=== PATIENT | female | born 1960 | race Caucasian/White ===

== ENCOUNTER 2017-12-08 12:50 | Observation (INO) ==
[2017-12-08] MEDS ORDERED: Aspirin 325 MG Tablet PO ONE (13:30)
--- NOTE | 2017-12-08 13:37 | ED ---
HPI General Chief complaint: Dizziness Stated complaint: SOB/ Dizziness Time Seen by Provider: 12/08/17 13:09 Source: patient and family Mode of arrival: ambulatory Limitations: no limitations History of Present Illness HPI narrative: Patient is a 57-year-old female that presents for the evaluation of dizziness. The patient reports that over the past two weeks she has also been experiencing worsening fatigue, shortness of breath, and in general she states that she just feel as if she, "is in a fog." The patient states that when she feels dizzy she loses her balance and feels light headed. The patient states that the shortness of breath is occurring at rest as well as upon exertion. The patient also reports that she feels a tightness in her chest that also started two weeks ago with the other symptoms. The patient was seen today by her family provider who recommended she come in for an evaluation. Upon review of symptoms the patient reports generalized fatigue, palpitations, nausea , and vomiting. The patient denies feeling nauseous or any history of vomiting today. The patient also reports a chronic history of GERD which has recently become worse. The patient states that the burning sensation can become so intense at night that it will wake her up from her sleep. The patient does not report that anything specific that worsens the pain and she takes Tums to help alleviate the pain. Pain is 5/10. Related Data Home Medications Medication Instructions Recorded Confirmed citalopram 10 mg PO DAILY 12/08/17 12/08/17 dextroamphetamine-amphetamine 20 mg PO DAILY 12/08/17 12/08/17 [Adderall] Allergies Allergy/AdvReac Type Severity Reaction Status Date / Time amoxicillin Allergy Severe Hives Unverified 11/02/16 16:06 cephalexin Allergy Severe Hives Unverified 11/02/16 16:06 penicillin G Allergy Severe Hives Unverified 11/02/16 16:06 Review of Systems ROS: all other systems reviewed are negative [facility] Social History Social History Substance History: No History of Abuse Smoking Status: Current every day smoker Tobacco Type: Cigarettes How Often Do You Have a Drink Containing Alcohol: Never Recent Travel in [facility] within the Last 8 Weeks: No Recent Out of Country Travel within the Last 8 Weeks: No Immunization History Tetanus Immunization: Unsure Hx Influenza Vaccine This Season: No Exam Narrative Exam Narrative: GENERAL: Well appering. SKIN: Focused skin assessment warm/dry. HEAD: Atraumatic. Normocephalic. EYES: Pupils equal and round. No scleral icterus. No injection or drainage. ENT: No nasal bleeding or discharge. Mucous membranes pink and moist. NECK: Trachea midline. No JVD. CARDIOVASCULAR: Regular rate and rhythm. No murmur appreciated. RESPIRATORY: No accessory muscle use. Clear to auscultation. Breath sounds equal bilaterally. GASTROINTESTINAL: Abdomen soft, non-tender, nondistended. Hepatic and splenic margins not palpable. MUSCULOSKELETAL: No obvious deformities. No clubbing. No cyanosis. No edema. NEUROLOGICAL: Awake and alert. No obvious cranial nerve deficits. Motor grossly within normal limits. Normal speech. PSYCHIATRIC: Appropriate mood and affect; insight and judgment normal. Course Initial Documented Vital Signs Temperature 98.9 F 12/08/17 12:57 Pulse Rate 93 H 12/08/17 12:57 Respiratory Rate 12 12/08/17 12:57 Blood Pressure 123/77 12/08/17 12:57 Pulse Oximetry 95 12/08/17 12:57 Last Documented Vital Signs Temperature 98.9 F 12/08/17 12:57 Pulse Rate 93 H 12/08/17 12:57 Respiratory Rate 12 12/08/17 12:57 Blood Pressure 123/77 12/08/17 12:57 Pulse Oximetry 95 12/08/17 12:57 Medical Decision Making [facility] Narrative Medical decision making narrative: 57-year-old female the presents to the ED for evaluation of shortness of breath with exertion and chest discomfort. Patient was properly examined and was found to have signs and symptoms concerning for ACS. Patient was sent here for workup for ACS. She is a smoker. She reports she does have risk factors including age. Per patient she has no family history of heart disease. She does have a history of high blood pressure. Labs and imaging were done. Initial EKG on blood work did not show any sign of acute ischemia or arrhythmia. D-dimer was negative and the sign of PE. Physical exam is reassuring with no obvious sign of wheezing no real diagnosis for the patient. She does state that her heartburn has been worsening. This is concerning for possible angina equivalent. Recommendation at this time is for admission to chest pain center. Patient agrees with plan. Patient was admitted to chest pain center by me. My attending Dr Reza was made aware of findings and agrees with admission. Medical Screen Exam Complete: Yes Emergency Medical Condition: Yes Differential Diagnosis Differential Diagnosis: ACS versus angina versus PE versus electron abnormality versus hypotension Medical Records Medical records reviewed: Yes I reviewed the patient's medical records. Lab Data Lab results reviewed: Yes I reviewed the patient's lab results. Lab results narrative: CKMB and troponin negative Result diagrams: 12/08/17 13:40 12/08/17 13:40 Lab Results 12/08/17 12/08/17 12/08/17 Range/Units 13:40 13:40 13:40 WBC 5.8 (4.0-11.0) th/mm3 RBC 4.01 (4.00-5.30) mil/mm3 Hgb 12.5 (11.6-15.3) gm/dL Hct 36.8 (35.0-46.0) % MCV 91.8 (80.0-100.0) fL MCH 31.1 (27.0-34.0) pg MCHC 33.9 (32.0-36.0) % RDW 14.8 (11.6-17.2) % Plt Count 180 (150-450) th/mm3 MPV 9.6 (7.0-11.0) fL Neut % (Auto) 52.4 (16.0-70.0) % Lymph % (Auto) 37.8 (9.0-44.0) % [place] % (Auto) 7.6 (0.0-8.0) % Eos % (Auto) 1.8 (0.0-4.0) % Baso % (Auto) 0.4 (0.0-2.0) % Neut # (Auto) 3.1 (1.8-7.7) th/mm3 Lymph # (Auto) 2.2 (1.0-4.8) th/mm3 [place] # (Auto) 0.4 (0.0-0.9) th/mm3 Eos # (Auto) 0.1 (0.0-0.4) th/mm3 Baso # (Auto) 0.0 (0.0-0.2) th/mm3 WBC Differential . Differential Comment Auto diff final D-Dimer Quant (PE/DVT) 0.47 (0.00-0.50) mg/L FEU Sodium 139 (136-145) meq/L Potassium 3.6 (3.5-5.1) meq/L Chloride 104 (98-107) meq/L Carbon Dioxide 26.7 (21.0-32.0) meq/L Anion Gap 8 (5-15) meq/L BUN 12 (7-18) mg/dL Creatinine 0.84 (0.50-1.00) mg/dL Estimated GFR 70 L (>89) mL/min Random Glucose 107 H (74-106) mg/dL Calcium 8.6 (8.5-10.1) mg/dL Total Bilirubin 0.3 (0.2-1.0) mg/dL AST 41 H (15-37) U/L ALT 65 H (10-53) U/L Alkaline Phosphatase 101 (45-117) U/L Troponin I Less than 0.02 L (0.02-0.05) ng/mL Total Protein 8.3 H (6.4-8.2) g/dL Albumin 3.7 (3.4-5.0) g/dL Lipase 87 (73-393) U/L Imaging Data Attestation: I personally reviewed and interpreted this imaging study as follows : Radiologist's impression: Chest X-Ray 12/08/17 13:30 CONCLUSION: Negative examination. ECG Data Attestation: I personally reviewed and interpreted this ECG as follows: Interpretation: EKG show sinus rhythm with no sign of acute ischemia or arrhythmia. Ventricular rate of 80, SC interval of 147 ms. Discharge Plan Discharge Disposition Patient Disposition: 30 Still Patient Discharge Details Diagnosis: Chest pain Physicians Team ED Provider: Juanito Reza ED Midlevel Provider: Yordan Davis Primary Care Provider: UNKNOWN, Rxs /Orders / Referrals /Forms Prescriptions: No Action citalopram 10 mg Tablet 10 mg PO DAILY RF: 0 dextroamphetamine-amphetamine [Adderall] 10 mg Tablet 20 mg PO DAILY RF: 0 Discharge Interventions Interventions: Vital Signs Last Done: 12/08/17 12:57 Status ED Status: With Doctor
[2017-12-08 13:55] LABS: Baso % (Auto) 0.4 % (0.0-2.0); Eos # (Auto) 0.1 th/mm3 (0.0-0.4); Eos % (Auto) 1.8 % (0.0-4.0); Hematocrit 36.8 % (35.0-46.0); Hemoglobin 12.5 gm/dL (11.6-15.3); Lymph # (Auto) 2.2 th/mm3 (1.0-4.8); Lymph % (Auto) 37.8 % (9.0-44.0); Mean Corpuscular HGB Conc 33.9 % (32.0-36.0); Mean Corpuscular Hemoglobin 31.1 pg (27.0-34.0); Mean Corpuscular Volume 91.8 fL (80.0-100.0); Mean Platelet Volume 9.6 fL (7.0-11.0); Mono # (Auto) 0.4 th/mm3 (0.0-0.9); Mono % (Auto) 7.6 % (0.0-8.0); Neut # (Auto) 3.1 th/mm3 (1.8-7.7); Neut % (Auto) 52.4 % (16.0-70.0); Platelet Count 180 th/mm3 (150-450); Red Blood Count 4.01 mil/mm3 (4.00-5.30); Red Cell Distribution Width 14.8 % (11.6-17.2); White Blood Count 5.8 th/mm3 (4.0-11.0)
--- NOTE | 2017-12-08 14:05 | XR ---
EXAM DATE: 12/08/2017 2:01 PM EDT AGE/SEX: 57 years / Female INDICATIONS: Chest pain. CLINICAL DATA: This is the patient's initial encounter. Patient reports that signs and symptoms have been present for 1 day and indicates a pain score of 0/10. MEDICAL/SURGICAL HISTORY: None. None. COMPARISON: No prior exams available for comparison. FINDINGS: A single AP view of the chest demonstrates the lungs to be symmetrically aerated without evidence of mass, infiltrate or effusion. The cardiomediastinal contours are unremarkable. Osseous structures a re intact. CONCLUSION: Negative examination. Electronically signed by: Jean-Pierre Rodriguez MD 12/08/2017 2:04 PM EDT
[2017-12-08 14:10] LABS: Alanine Aminotransferase 65 U/L (10-53); Albumin 3.7 g/dL (3.4-5.0); Anion Gap 8 meq/L (5-15); Aspartate Aminotransferase 41 U/L (15-37); Blood Urea Nitrogen 12 mg/dL (7-18); Calcium 8.6 mg/dL (8.5-10.1); Carbon Dioxide 26.7 meq/L (21.0-32.0); Chloride 104 meq/L (98-107); Glomerular Filtration Rate 70 mL/min (>89); Glucose,Random 107 mg/dL (74-106); Lipase 87 U/L (73-393); Potassium 3.6 meq/L (3.5-5.1); Sodium 139 meq/L (136-145)
[2017-12-08 14:14] LABS: Alkaline Phosphatase 101 U/L (45-117); Total Protein 8.3 g/dL (6.4-8.2)
[2017-12-08] MEDS ORDERED: Famotidine PF Inj 20 MG/2 ML Vial IV.PUSH ONE (15:01)
--- NOTE | 2017-12-08 16:53 | P.HPCA ---
History of Present Illness Primary Care Physician: UNKNOWN Chief Complaint: Chest pain History of Present Illness: This is a 57-year-old female the presents to ED via private vehicle with complaint of feeling fatigued, increased acid reflux, hard time focusing, and then also complains of a central chest pressure has been intermittent for 2 weeks. She felt dizzy at times. She found nothing in particular bring on the chest pressures. States it does not last long when it occurs. Found nothing to improve or worsen when it is present. Cannot recall recent cardiac testing. Denies hypertension, hyperlipidemia, diabetes, and known CAD. Patient smokes three-quarter 1 pack a series daily. Denies family history of CAD. - Diagnosis (1) Chest pain (2) Tobacco abuse Review of Systems General: Patient denies fevers, chills, and recent travel. HEENT: Patient denies headache, sore throat, difficulty swallowing. Cardiovascular: Has the chest discomfort as mentioned above. Denies sensation of heart beating rapidly or irregularly. No syncope. Denies diaphoresis. Respiratory: Denies shortness of breath or inspirational chest discomfort. Denies coughing wheezing or hemoptysis. GI: Patient denies nausea, vomiting, diarrhea, abdominal pain, bloody stools. Musculoskeletal: Patient denies joint pain or edema. Denies calf pain or edema. Neurovascular: Patient denies numbness, tingling, weakness in extremities. Denies headache. Endocrine: Denies polyuria and polydipsia. Hematologic: Denies easy bruising. Skin: Denies rash or itching. PMFSH - History History Provided By: Patient - Tobacco History Tobacco Use In Past 30 Days: Yes Smoking Status: Current every day smoker Tobacco Type: Cigarettes - Alcohol History How Often Do You Have a Drink Containing Alcohol: Never - Substance Use History Substance History: No History of Abuse - Travel History Recent Travel in the [place] Within the Last 8 Weeks: No Recent Travel Out of the Country Within the Last 8 Weeks: No - Immunization History Tetanus Immunization: Unsure Hx Influenza Vaccine This Season: No Medications and Allergies Allergies Allergy/AdvReac Type Severity Reaction Status Date / Time amoxicillin Allergy Severe Hives Unverified 11/02/16 16:06 cephalexin Allergy Severe Hives Unverified 11/02/16 16:06 penicillin G Allergy Severe Hives Unverified 11/02/16 16:06 Home Medications Medication Instructions Recorded Confirmed Type citalopram 10 mg PO DAILY 12/08/17 12/08/17 History dextroamphetamine-amphetamine 20 mg PO DAILY 12/08/17 12/08/17 History [Adderall] Exam Vital signs: Vital Signs 12/08/17 12:57 Temperature 98.9 F Pulse Rate 93 H Respiratory Rate 12 Blood Pressure 123/77 Pulse Oximetry 95 Intake & Output 12/07/17 12/08/17 12/08/17 18:59 06:59 18:59 Weight 95.254 kg Narrative: GENERAL: This is a well-nourished, well-developed patient, in no apparent distress. Patient speaks in clear complete sentences. Patient is pleasant. HEENT: Head is atraumatic and normocephalic. Neck is supple without lymphadenopathy and trachea is midline. No JVD or carotid bruits. CARDIOVASCULAR: Regular rate and rhythm without murmurs, gallops, or rubs. RESPIRATORY: Clear to auscultation. Breath sounds equal bilaterally. No wheezes , rales, or rhonchi. Chest wall is nontender. No use of accessory muscles. GASTROINTESTINAL: Abdomen is nontender, nondistended. Abdomen soft. No obvious pulsatile mass or bruit. No CVA tenderness. Strong femoral pulses bilaterally. Normal bowel sounds in all quadrants. MUSCULOSKELETAL: Patient is moving upper and lower extremities freely. No calf tenderness or edema, no Homans sign. Strong pulses in upper and lower extremities. NEUROLOGICAL: Patient is alert and oriented. Cranial nerves 2-12 are grossly intact. No focal deficits and speech is clear. SKIN: No rash and turgor is normal. Results 12/08/17 13:40 12/08/17 13:40 Cardiac Enzymes 12/08/17 Range/Units 13:40 AST 41 H (15-37) U/L Troponin I Less than 0.02 L (0.02-0.05) ng/mL CBC 12/08/17 Range/Units 13:40 WBC 5.8 (4.0-11.0) th/mm3 RBC 4.01 (4.00-5.30) mil/mm3 Hgb 12.5 (11.6-15.3) gm/dL Hct 36.8 (35.0-46.0) % Plt Count 180 (150-450) th/mm3 Neut # (Auto) 3.1 (1.8-7.7) th/mm3 Lymph # (Auto) 2.2 (1.0-4.8) th/mm3 [place] # (Auto) 0.4 (0.0-0.9) th/mm3 Eos # (Auto) 0.1 (0.0-0.4) th/mm3 Baso # (Auto) 0.0 (0.0-0.2) th/mm3 Comprehensive Metabolic Panel 12/08/17 Range/Units 13:40 Sodium 139 (136-145) meq/L Potassium 3.6 (3.5-5.1) meq/L Chloride 104 (98-107) meq/L Carbon Dioxide 26.7 (21.0-32.0) meq/L BUN 12 (7-18) mg/dL Creatinine 0.84 (0.50-1.00) mg/dL Calcium 8.6 (8.5-10.1) mg/dL AST 41 H (15-37) U/L ALT 65 H (10-53) U/L Alkaline Phosphatase 101 (45-117) U/L Total Protein 8.3 H (6.4-8.2) g/dL Albumin 3.7 (3.4-5.0) g/dL Intake and Output 12/08/17 12/08/17 12/08/17 06:59 14:59 22:59 Other: Weight 95.254 kg Patient Weight 12/09/17 06:59 Weight 95.254 kg EKG interpretations - EKG EKG shows: sinus rhythm (Initial EKG is sinus rhythm rate of [address] segment depressions or elevations.) Caprini VTE Risk Assessment Caprini VTE Risk Assessment: No/Low Risk (score <= 1) Caprini Risk Assessment Model: Point Value = 1 Point Value = 2 Point Value = 3 Point Value = 5 Age 41-60 Minor surgery BMI > 25 kg/m2 Swollen legs Varicose veins or History of unexplained or recurrent spontaneous Oral contraceptives or hormone replacement Sepsis (< 1 month) Serious lung disease, including pneumonia (< 1 month) Abnormal pulmonary function Acute myocardial infarction Congestive heart failure (< 1 month) History of inflammatory bowel disease Medical patient at bed rest Age 61-74 Arthroscopic surgery Major open surgery (> 45 min) Laparoscopic surgery (> 45 min) Malignancy Confined to bed (> 72 hours) Immobilizing plaster cast Central venous access Age >= 75 History of VTE Family history of VTE Factor V Leiden Prothrombin [id number] Lupus anticoagulant Anticardiolipin antibodies Elevated serum homocysteine Heparin-induced thrombocytopenia Other congenital or acquired thrombophilia Stroke (< 1 month) Elective arthroplasty Hip, pelvis, or leg fracture Acute spinal cord injury (< 1 month) Prophylaxis Regimen: Total Risk Factor Score Risk Level Prophylaxis Regimen 0-1 Low Early ambulation 2 Moderate Order ONE of the following: *Sequential Compression Device (SCD) *Heparin 5000 units SQ BID 3-4 Higher Order ONE of the following medications: *Heparin 5000 units SQ TID *Enoxaparin/Lovenox 40 mg SQ daily (WT < 150 kg, CrCl > 30 mL/min) *Enoxaparin/Lovenox 30 mg SQ daily (WT < 150 kg, CrCl > 10-29 mL/min) *Enoxaparin/Lovenox 30 mg SQ BID (WT < 150 kg, CrCl > 30 mL/min) AND/OR *Sequential Compression Device (SCD) 5 or more Highest Order ONE of the following medications: *Heparin 5000 units SQ TID (Preferred with Epidurals) *Enoxaparin/Lovenox 40 mg SQ daily (WT < 150 kg, CrCl > 30 mL/min) *Enoxaparin/Lovenox 30 mg SQ daily (WT < 150 kg, CrCl > 10-29 mL/min) *Enoxaparin/Lovenox 30 mg SQ BID (WT < 150 kg, CrCl > 30 mL/min) AND *Sequential Compression Device (SCD) Assessment and Plan - Assessment (1) Chest pain Code(s): R07.9 - Chest pain, unspecified Status: Acute (2) Tobacco abuse Code(s): Z72.0 - Tobacco use Status: Acute - Plan * Chest pain: Patient will continue to have serial cardiac enzymes and EKGs for ruling out purposes. She has been seen by Dr. Ramon Jade of cardiology in the chest pain center. She will have a Lexiscan in the morning if she does rule out. She will be discharged home if her stress test is nonischemic with instructions to follow-up with PCP. Return to ED for interval issues. * Tobacco abuse: Patient counseled on importance of smoking cessation. Patient is stable at this time. She is agreeable to this plan. (1) Chest pain Qualifiers: Chest pain type: unspecified Qualified Code(s): R07.9 - Chest pain, unspecified
[2017-12-08 17:28] LABS: Creatine Kinase 60 U/L (26-192)
[2017-12-08 19:36] VITALS: RESP 16
[2017-12-08 20:44] LABS: Creatine Kinase 79 U/L (26-192)
[2017-12-09] MEDS ORDERED: Acetaminophen 500 MG Tablet PO PRN (07:17)
[2017-12-09 07:26] VITALS: BP 113/59; TEMP 98.1; O2SAT 96
[2017-12-09] MEDS ORDERED: Aspirin 325 MG Tablet PO SCH (09:00)
--- NOTE | 2017-12-09 09:07 | P.PNCA ---
Subjective Interval history: No complaints overnight. Continues to report substernal chest "soreness" however much improved. Physical Exam Vital signs: Vital Signs 12/08/17 12:57 12/08/17 19:34 12/08/17 20:00 Temperature 98.9 F 98.2 F Pulse Rate 93 H 68 62 Respiratory Rate 12 16 Blood Pressure 123/77 111/66 Pulse Oximetry 95 97 12/09/17 00:00 12/09/17 00:07 12/09/17 04:04 Temperature 98.7 F Pulse Rate 61 62 58 L Respiratory Rate 16 Blood Pressure 126/57 L Pulse Oximetry 95 12/09/17 04:36 12/09/17 07:23 Temperature 98.5 F 98.1 F Pulse Rate 65 61 Respiratory Rate 16 16 Blood Pressure 127/58 L 113/59 L Pulse Oximetry 97 96 Intake & Output 12/08/17 12/09/17 12/09/17 18:59 06:59 18:59 Weight 95.254 kg Other: # Voids 0 Weight On Admission 95.254 kg - Constitutional no acute distress, obese Comments: Easily awakens from sleep - Routine HEENT Exam Head: Present: normocephalic, atraumatic - Routine Respiratory Exam Present: CTA bilaterally. Absent: rhonchi, wheezes - Routine Cardiovascular Exam Present: RRR. Absent: murmur, gallop, rubs Assessment and Plan - Assessment (1) Chest pain Code(s): R07.9 - Chest pain, unspecified Status: Acute Plan: ACS ruled out with 3 sets of EKGs and cardiac enzymes. Proceed with planned Lexiscan this morning. Verbalized understanding and agreeable to plan of care. If testing unremarkable, plan to discharge home with follow up with PCP. (2) Tobacco abuse Code(s): Z72.0 - Tobacco use Status: Acute Plan: Strongly encouraged and stressed importance of tobacco cessation. Instructed to quit smoking. - Plan * Chest pain: Patient will continue to have serial cardiac enzymes and EKGs for ruling out purposes. She has been seen by Dr. Ramon Jade of cardiology in the chest pain center. She will have a Lexiscan in the morning if she does rule out. She will be discharged home if her stress test is nonischemic with instructions to follow-up with PCP. Return to ED for interval issues. * Tobacco abuse: Patient counseled on importance of smoking cessation. Patient is stable at this time. She is agreeable to this plan. (1) Chest pain Qualifiers: Chest pain type: unspecified Qualified Code(s): R07.9 - Chest pain, unspecified
[2017-12-09] MEDS ORDERED: Regadenoson Inj 0.4 MG/5 ML Syringe IV.PUSH ONE (10:19)
--- NOTE | 2017-12-09 12:22 | NM ---
EXAM DATE: 12/09/2017 11:18 AM EDT AGE/SEX: 57 years / Female INDICATIONS:Angina. . Central chest pressure with dizziness CLINICAL DATA: This is the patient's initial encounter. Patient reports that signs and symptoms have been present for 2 weeks and indicates a pain score of 5/10. MEDICAL/SURGICAL HISTORY: . Smoker. None. COMPARISON: No prior exams available for comparison. DOSE: 8.8 mCi Tc 99m Myoview at rest 26.3 mCi [id number] at stress 0.4 mg Lexiscan STRESS SYMPTOMS: Shortness of breath. EJECTION FRACTION: 69 % TECHNIQUE: The patient underwent pharmacologic stress with infusion of prescribed dose. Continuous ECG tracing was monitored during stress. Gated SPECT imaging was performed after stress and conventi onal SPECT imaging was performed at rest. The examination was performed on a SPECT/CT scanner, both attenuation and non-corrected datasets were reviewed. FINDINGS: The best perfused myocardium is the lateral and inferior wall. There is a small fixed defect in the a nterior myocardium. There is minimal redistribution involving a small segment of the septum towards t he base. Ejection fraction 69% with normal wall motion. RISK CATEGORY: Low (<1% Annual Motality Rate) CONCLUSION: 1. Minimal, borderline significant redistribution in the septum towards the base. Electronically signed by: Blaine Plascencia MD 12/09/2017 12:21 PM EDT
[2017-12-09 12:36] VITALS: PULSE 63
--- NOTE | 2017-12-10 10:26 | TR ---
Date Performed: 12/09/2017 Time Performed: 10:21:46 DOCTOR: Pastor Martinez DRUG LIST: CLINICAL HISTORY: REASON FOR TEST: REASON FOR ENDING: OBSERVATION: CONCLUSION: Lexiscan stress test was performed under standard four minute protocol. Radionuclide was injected one minute prior to ending the test. No electrocardiographic abormalities were present to suggest ischemia. Nuclear imaging and interpretation are pending. COMMENTS:
--- NOTE | 2017-12-10 10:35 | ECG ---
Date Performed: 12/09/2017 Time Performed: 00:33:48 PTAGE: 57 years EKG: Sinus rhythm NORMAL ECG PREVIOUS TRACING : 12/08/2017 13.20 DOCTOR: Pastor Martinez Interpretating Date/Time 12/10/2017 10:33:46
--- NOTE | 2017-12-10 10:37 | ECG ---
Date Performed: 12/08/2017 Time Performed: 13:20:23 PTAGE: 57 years EKG: Sinus rhythm NORMAL ECG NO PREVIOUS TRACING DOCTOR: Pastor Martinez Interpretating Date/Time 12/10/2017 10:34:50
== END 2017-12-09 13:07 | disposition home or self-care (01) ==
LOC: NEDA 12:50 → NEPC 12:50 → NEPFCDU 17:27
PROVIDERS: ADMIT Internal Medicine Cardiovascular Disease; ATTEND Internal Medicine Cardiovascular Disease